=== PATIENT | male | born 2000 | race African-American/Black ===

== ENCOUNTER 2019-07-26 12:17 | Day surgery (SDC) | payer BC ==
[2019-07-18 13:21] VITALS: BMI 30.4
[2019-07-26] MEDS ORDERED: PROPOFOL 20 ML ONE ×2 (14:37)
[2019-07-26 15:51] VITALS: BP 128/76; PULSE 72; TEMP 98
== END 2019-07-26 16:03 | disposition home or self-care (01) ==
LOC: FASU-ENDO 12:17 → FASU 12:17 → FASU-ENDO 16:03
PROVIDERS: ATTEND Internal Medicine Gastroenterology
PROC: 0DJD8ZZ Inspection of Lower Intestinal Tract, Via Natural or Artificial Opening Endoscopic (ICD-10-PCS; principal; 2019-07-26 15:01)
DX: K64.8 Other hemorrhoids (principal); K92.1 Melena